=== PATIENT | male | born 1985 | race Hispanic/Latino ===

== ENCOUNTER → 2019-03-06 | Outpatient (CLI) | payer OTHER | END | disposition home or self-care (01) | LOC: OIH 15:45 | PROVIDERS: ATTEND Internal Medicine | DX: M23.92 Unspecified internal derangement of left knee (principal) | CPT/HCPCS: 73560 ==

== ENCOUNTER 2019-05-03 16:15 | Inpatient (IN) | payer BC, OTHER ==
[~2019-05-03] VITALS: Ht 165.1 cm; Wt 66.6 kg
[2019-05-03 16:55] LABS: BASOPHILS % (AUTO) 0.7 % (0.0-5.0); EOSINOPHILS % (AUTO) 0.8 % (0.0-8.0); HEMATOCRIT 48.7 % (42-54); LYMPHOCYTES % (AUTO) 26.4 % (21.0-51.0); MEAN CORPUSCULAR HEMOGLOBIN 30.9 pg (27.0-33.0); MEAN CORPUSCULAR HGB CONC 34.7 g/dL (32.0-36.0); MONOCYTES % (AUTO) 8.8 % (3.0-13.0); NEUTROPHILS % (AUTO) 63.3 % (40.0-77.0); PLATELET COUNT (AUTO) 237 K/uL (130-400); RED BLOOD CELL COUNT(AUTO) 5.47 MIL/uL (4.50-6.20); RED CELL DISTRIBUTION WIDTH 13.3 % (11.0-15.5); WHITE BLOOD COUNT (AUTO) 7.1 K/uL (4.8-10.8)
[2019-05-03 17:04] LABS: APPEARANCE,URINE Clear (CLEAR); BILIRUBIN,URINE Negative (NEGATIVE); COLOR,URINE Yellow (YELLOW); GLUCOSE, URINE (UA) Negative (NEGATIVE); KETONES,URINE Negative (NEGATIVE); LEUKOCYTE ESTERASE ,URINE Negative (NEGATIVE); NITRATE,URINE Negative (NEGATIVE); OCCULT BLOOD,URINE Negative (NEGATIVE); PH,URINE 6.5 (5.0-8.0); PROTEIN,URINE Negative (NEGATIVE); UROBILINOGEN,URINE 0.2 mg/dL (0.2-1.0)
[2019-05-03 17:11] LABS: CREATININE 1.2 mg/dL (0.5-1.5); POTASSIUM 3.9 mmol/L (3.5-5.1)
[2019-05-03 17:45] LABS: ALBUMIN 4.4 g/dL (3.5-5.0); BILIRUBIN,DIRECT 0.1 mg/dL (0.0-0.3); BILIRUBIN,TOTAL 0.5 mg/dL (0.2-1.0); TOTAL PROTEIN, SERUM 7.4 g/dL (6.0-8.3)
[2019-05-03] MEDS ORDERED: IOHEXOL-350 75 ML VIAL IV ONE (20:21)
[2019-05-03] MEDS ORDERED: DEXTROSE 5 %-0.45 % NACL 1,000 ML IV ONE (23:07)
[2019-05-03 23:27] VITALS: BP 132/65
[2019-05-03] MEDS ORDERED: ONDANSETRON HCL 4 MG/2 ML VIAL IVP PRN (23:30)
[2019-05-03] MEDS ORDERED: MORPHINE SULFATE 4 MG/1ML SYG IVP PRN (23:30)
[2019-05-03] MEDS ORDERED: PANT40TA PO (23:32)
[2019-05-04] VITALS (16 sets, daily range): BP systolic 102–126; BP diastolic 49–68
[2019-05-04 05:03] LABS: HEMATOCRIT 42.9 % (42-54); MEAN CORPUSCULAR HEMOGLOBIN 30.1 pg (27.0-33.0); MEAN CORPUSCULAR HGB CONC 34.2 g/dL (32.0-36.0); NUCLEATED RED BLOOD CELLS 0.1 % (0.0-0.19); PLATELET COUNT (AUTO) 229 K/uL (130-400); RED BLOOD CELL COUNT(AUTO) 4.87 MIL/uL (4.50-6.20); RED CELL DISTRIBUTION WIDTH 13.3 % (11.0-15.5); WHITE BLOOD COUNT (AUTO) 6.8 K/uL (4.8-10.8)
[2019-05-04 05:53] LABS: CREATININE 1.2 mg/dL (0.5-1.5)
--- NOTE | 2019-05-04 06:28 | NUR ---
MD SHIRA HOLLAND VISITED WITH PATIENT. POC DISCUSSED. NEW ORDERS RECEIVED AND CARRIED OUT. PATIENT AND SPOUSE AT BEDSIDE AWARE. NO QUESTIONS OR CONCERNS VOICED AT THIS TIME. CALL LIGHT WITHIN REACH. WILL CONTINUE TO BE OBSERVED. Addendum: 05/04/19 at 0630 by JOVITA FABIAN RN RN Amended: Links added.
[2019-05-04] MEDS: DEXTROSE 5 %-0.45 % NACL 1,000 ML IV SCH ×2 (06:46→07:30)
[2019-05-04 06:57] LABS: CHOLESTEROL 182 mg/dL (<200); HDL CHOLESTEROL 37 mg/dL (29-71); LDL DIRECT 130 mg/dL (0-99); TRIGLYCERIDES 62 mg/dL (30-200)
--- NOTE | 2019-05-04 07:30 | NUR ---
DR. ROCKY HIDALGO IN TO SEE PATIENT. HE HAS TRANSFERRED CARE OF PATIENT TO PRIMARY MD (DR. MEDINA).
[2019-05-04] MEDS: PANTOPRAZOLE 40 MG/VIAL IVP SCH (08:17)
[2019-05-04] MEDS ORDERED: PAROXETINE HCL 20 MG TABLET PO SCH ×2 (12:59→21:00)
--- NOTE | 2019-05-04 13:23 | NUR ---
Nutrition intervention: Nutrition consult for weight loss with poor po intake. Pt states he has had 10lb weight loss in the past month. Pt also reports he used to exercise frequently and has stopped due to injuring his leg. Overall, pt appears well nourished, weight loss may be due to muscle loss from lack of exercise. Pt is newly diagnosed with pancreatitis. Pancreatitis diet reviewed with patient. Pt instructed to monitor and reduce fat intake. Pt verbalize understanding. Recommendations: When medically feasible advance diet therapy to low fat diet. Monitor PO intake and tolerance. Consult RD as nutrition concern arise. Addendum: 05/04/19 at [address] RD Amended: Links added.
--- NOTE | 2019-05-04 13:50 | NUR ---
A AUXILIARY DR. JOHNSON HERE TO SEE PATIENT. ORDERS RECEIVED AND CARRIED OUT. PENDING EGD.
--- NOTE | 2019-05-04 14:07 | NUR ---
TO GI LAB PATIENT TRANSFERRED TO GI LAB VIA HOSPITAL BED FOR EGD IN STABLE CONDITION.
[2019-05-04] MEDS ORDERED: PROPOFOL 10 MG/ML 20ML VIAL IV ONE (14:16)
[2019-05-04] MEDS ORDERED: SUCCINYLCHOLINE CHLORIDE 20 MG/ML 10 ML VIAL ONE (14:17)
[2019-05-04] MEDS ORDERED: GLYCOPYRROLATE 0.2 MG/ML 5 ML VIAL ONE ×2 (14:17→14:40)
--- NOTE | 2019-05-04 15:05 | NUR ---
DCP CM met with pt discussed dc plans. Pt is independent prior to admission, lives at home with spouse. Denies any equipments/services. Feels safe to go back home, still drives, spouse able to assist with transportation and needs as necessary. DC plan to home once stable. CM to cont to follow up. Addendum: 05/04/19 at 1506 by ANNE MARIE DURBIN LVN CM Amended: Links added.
--- NOTE | 2019-05-04 15:13 | NUR ---
BACK FROM GI LAB PATIENT RETURNED FROM GI LAB IN STABLE CONDITION. FAMILY IS PRESENT IN ROOM. PENDING HIDA SCAN WITH Jerzy
--- NOTE | 2019-05-04 21:00 | NUR ---
ROUNDS PATIENT AWAKE AND ALERT. VOICES ALL NEEDS. NO COMPLAINTS OF PAIN VOICED AT THIS TIME. VITALS STABLE. AFEBRILE. HIGH FIBER DIET IN PLACE. TOLERATING PO DIET WELL. NO COMPLAINTS OF DYSPEPSIA OR NAUSEA OR VOMITING NOTED. UP AD NOAM. SPOUSE AT BEDSIDE. CALL LIGHT WITHIN REACH. WILL CONTINUE TO BE OBSERVED. Addendum: 05/05/19 at 0322 by JOVITA FABIAN RN RN Amended: Links added.
[2019-05-05] VITALS: BP 109/55
[2019-05-05 03:52] VITALS: BP 114/67
[2019-05-05 04:26] LABS: HEMATOCRIT 43.7 % (42-54); MEAN CORPUSCULAR HEMOGLOBIN 31.1 pg (27.0-33.0); MEAN CORPUSCULAR VOLUME 88.7 fL (79-99); PLATELET COUNT (AUTO) 229 K/uL (130-400); RED BLOOD CELL COUNT(AUTO) 4.93 MIL/uL (4.50-6.20); RED CELL DISTRIBUTION WIDTH 13.3 % (11.0-15.5); WHITE BLOOD COUNT (AUTO) 10.4 K/uL (4.8-10.8)
[2019-05-05 04:40] LABS: ALBUMIN 3.7 g/dL (3.5-5.0); BILIRUBIN,TOTAL 1.1 mg/dL (0.2-1.0); CREATININE 1.2 mg/dL (0.5-1.5); POTASSIUM 3.5 mmol/L (3.5-5.1); TOTAL PROTEIN, SERUM 6.7 g/dL (6.0-8.3)
--- NOTE | 2019-05-05 06:31 | NUR ---
MD SHIRA HOLLAND VISITED WITH PATIENT. POC DISCUSSED. NO NEW ORDERS AT THIS TIME. PENDING 2D ECHO BEFORE DISCHARGE. FOLLOW UP WITH ON ELEVATED LIPASE. PATIENT AWARE. WILL CONTINUE TO BE OBSERVED. CALL LIGHT WITHIN REACH. Addendum: 05/05/19 at 0632 by JOVITA FABIAN RN RN Amended: Links added.
--- NOTE | 2019-05-05 07:57 | NUR ---
message left in 2d echo dep. about getting the echo done this am. pending call back
[2019-05-05 08:02] VITALS: BP 111/70
[2019-05-05] MEDS: PANTOPRAZOLE 40 MG/VIAL IVP SCH (09:30)
[2019-05-05 11:33] VITALS: BP 113/72
[2019-05-05] MEDS: LACTATED RINGERS 1000ML 1,000 ML IV SCH ×2 (12:52→20:00)
[2019-05-05 16:00] VITALS: BP 119/75
[2019-05-05 19:21] VITALS: BP 119/63
[2019-05-05] MEDS: DEXTROSE 5 %-0.45 % NACL 1,000 ML IV SCH (19:43)
[2019-05-05] MEDS ORDERED: PAROXETINE HCL 20 MG TABLET PO SCH (21:00)
[2019-05-06] VITALS: BP 105/55
[2019-05-06 04:00] VITALS: BP 119/59
[2019-05-06] MEDS: DEXTROSE 5 %-0.45 % NACL 1,000 ML IV SCH (04:29)
[2019-05-06 06:14] LABS: ALBUMIN 3.6 g/dL (3.5-5.0); BILIRUBIN,TOTAL 0.8 mg/dL (0.2-1.0); CREATININE 1.2 mg/dL (0.5-1.5); POTASSIUM 3.6 mmol/L (3.5-5.1); TOTAL PROTEIN, SERUM 6.5 g/dL (6.0-8.3)
[2019-05-06 07:52] VITALS: BP 112/65
[2019-05-06] MEDS: PANTOPRAZOLE 40 MG/VIAL IVP SCH (08:40)
--- NOTE | 2019-05-06 10:47 | NUR ---
pt stated understanding of all d/c instructions in regards to pancreatitis, low fat diet, new perscriptions and follow up that need to be called for appointment; at bedside also stated understanding; iv access removed. to drive home.
== END 2019-05-06 11:25 | disposition home or self-care (01) | DRG 391 ==
LOC: EDH 16:15 → EDHIP 22:25 → 4AH 23:07
PROVIDERS: ADMIT Internal Medicine; ATTEND Internal Medicine
PROC: 0DB98ZX Excision of Duodenum, Via Natural or Artificial Opening Endoscopic, Diagnostic (ICD-10-PCS; principal; 2019-05-04)
PROC: 0DB68ZX Excision of Stomach, Via Natural or Artificial Opening Endoscopic, Diagnostic (ICD-10-PCS; 2019-05-04)
PROC: 0DB58ZX Excision of Esophagus, Via Natural or Artificial Opening Endoscopic, Diagnostic (ICD-10-PCS; 2019-05-04)
DX: K29.70 Gastritis, unspecified, without bleeding (principal); K85.90 Acute pancreatitis without necrosis or infection, unspecified; K86.1 Other chronic pancreatitis; F32.9 Major depressive disorder, single episode, unspecified; K21.0 Gastro-esophageal reflux disease with esophagitis; K59.00 Constipation, unspecified; K76.0 Fatty (change of) liver, not elsewhere classified; Z79.899 Other long term (current) drug therapy; R13.10 Dysphagia, unspecified; F43.10 Post-traumatic stress disorder, unspecified; F41.1 Generalized anxiety disorder
CPT/HCPCS: 36415; 43239; 71046; 74177; 76705; 78227; 80048; 80053; 80061; 80076; 81003; 82150; 82550; 83690; 84484; 85025; 85027; 85378; 87804; 88305; 93005; 93306; A9537; C9113; G0378; J0330; J2704; J3490; J7042; J7120; Q9967

== ENCOUNTER 2019-07-19 07:49 | Day surgery (SDC) | payer BC ==
[~2019-07-19] VITALS: Ht 165.1 cm; Wt 68.0 kg
[~2019-07-19 07:49] MED LIST: SODIUM CHLORIDE 0.9% 1000ML 1,000 ML IV ONE
[2019-07-19 08:30] VITALS: BP 109/62
[2019-07-19] MEDS ORDERED: PROPOFOL 10 MG/ML 20ML VIAL IV ONE ×2 (08:44)
[2019-07-19 09:02] VITALS: BP 110/59
[2019-07-19 09:07] VITALS: BP 103/57
[2019-07-19 09:12] VITALS: BP 116/61
== END 2019-07-19 09:30 | disposition home or self-care (01) ==
LOC: DAH 07:49 → ENDO 07:49
PROVIDERS: ATTEND Internal Medicine
DX: K85.90 Acute pancreatitis without necrosis or infection, unspecified (principal); K86.89 Other specified diseases of pancreas; K21.0 Gastro-esophageal reflux disease with esophagitis; R14.2 Eructation; K76.9 Liver disease, unspecified; F41.9 Anxiety disorder, unspecified; F32.9 Major depressive disorder, single episode, unspecified; Z79.899 Other long term (current) drug therapy
CPT/HCPCS: 43237; A4215; A4221; A4222; A4223; A4606; A4620; A4663; J2704 ×2; J7030

== ENCOUNTER → 2020-02-02 | Outpatient (CLI) | payer BC ==
[~2020-02-02] MED LIST changes: +IOHEXOL 350 MG/ML 100ML INFUS..BTL IV ONE; -SODIUM CHLORIDE 0.9% 1000ML 1,000 ML IV ONE
== END | disposition home or self-care (01) ==
LOC: OIH 08:51
PROVIDERS: ATTEND Internal Medicine Gastroenterology
DX: R10.13 Epigastric pain (principal); K85.90 Acute pancreatitis without necrosis or infection, unspecified
CPT/HCPCS: 74170; Q9967

== ENCOUNTER 2020-05-05 11:11 | Emergency (ER) | payer BC ==
[2020-05-05 11:31] LABS: BASOPHILS % (AUTO) 0.6 % (0.0-5.0); EOSINOPHILS % (AUTO) 1.6 % (0.0-8.0); HEMATOCRIT 49.3 % (42-54); LYMPHOCYTES % (AUTO) 34.9 % (21.0-51.0); MEAN CORPUSCULAR HEMOGLOBIN 29.3 pg (27.0-33.0); MEAN CORPUSCULAR HGB CONC 33.9 g/dL (32.0-36.0); MEAN CORPUSCULAR VOLUME 86.6 fL (79-99); MONOCYTES % (AUTO) 8.8 % (3.0-13.0); NEUTROPHILS % (AUTO) 53.7 % (40.0-77.0); PLATELET COUNT (AUTO) 206 K/uL (130-400); RED BLOOD CELL COUNT(AUTO) 5.69 MIL/uL (4.50-6.20); RED CELL DISTRIBUTION WIDTH 11.9 % (11.0-15.5); WHITE BLOOD COUNT (AUTO) 4.9 K/uL (4.8-10.8)
[2020-05-05 11:46] LABS: APPEARANCE,URINE Clear (CLEAR); BILIRUBIN,URINE Negative (NEGATIVE); COLOR,URINE Yellow (YELLOW); GLUCOSE, URINE (UA) Negative (NEGATIVE); KETONES,URINE Negative (NEGATIVE); LEUKOCYTE ESTERASE ,URINE Negative (NEGATIVE); NITRATE,URINE Negative (NEGATIVE); OCCULT BLOOD,URINE Negative (NEGATIVE); PH,URINE 7.5 (5.0-8.0); PROTEIN,URINE Negative (NEGATIVE); UROBILINOGEN,URINE 0.2 mg/dL (0.2-1.0)
[2020-05-05 12:19] LABS: CREATININE 1.2 mg/dL (0.5-1.5); POTASSIUM 4.3 mmol/L (3.5-5.1)
[2020-05-05 12:23] LABS: ALBUMIN 4.6 g/dL (3.5-5.0); BILIRUBIN,TOTAL 0.6 mg/dL (0.2-1.0); TOTAL PROTEIN, SERUM 7.9 g/dL (6.0-8.3)
[2020-05-05] MEDS ORDERED: KETOROLAC TROMETHAMINE 30MG/ML ONE (12:43)
[2020-05-05] MEDS ORDERED: SODIUM CHLORIDE 0.9% 1000ML 1,000 ML IV ONE (12:43)
== END 2020-05-05 15:32 | disposition home or self-care (01) ==
LOC: EDH 11:11
DX: T14.8XXA Other injury of unspecified body region, initial encounter (principal); R10.12 Left upper quadrant pain; K21.9 Gastro-esophageal reflux disease without esophagitis; Z88.1 Allergy status to other antibiotic agents; X58.XXXA Exposure to other specified factors, initial encounter; Y93.89 Activity, other specified; Y92.89 Other specified places as the place of occurrence of the external cause; Y99.8 Other external cause status
CPT/HCPCS: 36415; 74176; 80053; 81003; 82150; 83690; 85025; 96361; 96374; 99284; J1885; J7030

== ENCOUNTER 2020-09-08 22:37 | Emergency (ER) | payer BC ==
[2020-09-08] MEDS ORDERED: KETOROLAC 30MG VIAL (30MG/ML) ONE (23:08)
[2020-09-08 23:10] LABS: BASOPHILS % (AUTO) 0.6 % (0.0-5.0); HEMATOCRIT 44.4 % (42-54); MEAN CORPUSCULAR HEMOGLOBIN 30.1 pg (27.0-33.0); MEAN CORPUSCULAR VOLUME 88.4 fL (79-99); MONOCYTES % (AUTO) 12.5 % (3.0-13.0); NEUTROPHILS % (AUTO) 50.5 % (40.0-77.0); PLATELET COUNT (AUTO) 251 K/uL (130-400); RED BLOOD CELL COUNT(AUTO) 5.02 MIL/uL (4.50-6.20); RED CELL DISTRIBUTION WIDTH 12.4 % (11.0-15.5); WHITE BLOOD COUNT (AUTO) 7.3 K/uL (4.8-10.8)
[2020-09-08 23:31] LABS: CREATININE 1.5 mg/dL (0.5-1.5); POTASSIUM 3.8 mmol/L (3.5-5.1)
[2020-09-08 23:36] LABS: ALBUMIN 4.1 g/dL (3.5-5.0); BILIRUBIN,TOTAL 0.4 mg/dL (0.2-1.0); TOTAL PROTEIN, SERUM 7.3 g/dL (6.0-8.3)
[2020-09-09 00:44] LABS: APPEARANCE,URINE Clear (CLEAR); BILIRUBIN,URINE Negative (NEGATIVE); COLOR,URINE Yellow (YELLOW); GLUCOSE, URINE (UA) Negative (NEGATIVE); KETONES,URINE Negative (NEGATIVE); LEUKOCYTE ESTERASE ,URINE Negative (NEGATIVE); NITRATE,URINE Negative (NEGATIVE); OCCULT BLOOD,URINE Negative (NEGATIVE); PH,URINE 6.5 (5.0-8.0); PROTEIN,URINE Negative (NEGATIVE); UROBILINOGEN,URINE 0.2 mg/dL (0.2-1.0)
[2020-09-09] MEDS ORDERED: CYCLOBENZAPRINE HCL 10 MG TABLET ONE (02:26)
== END 2020-09-09 02:37 | disposition home or self-care (01) ==
LOC: EDH 22:37
DX: R10.32 Left lower quadrant pain (principal); N50.82 Scrotal pain; K21.9 Gastro-esophageal reflux disease without esophagitis; Z88.1 Allergy status to other antibiotic agents; Z79.899 Other long term (current) drug therapy
CPT/HCPCS: 36415; 76770; 76870; 80053; 81003; 83605; 83690; 85025; 96361; 96374; 99284; J1885

== ENCOUNTER → 2021-01-06 | Outpatient (CLI) | payer BC | END | disposition home or self-care (01) | LOC: RAH 12:45 | PROVIDERS: ATTEND Internal Medicine | DX: R10.32 Left lower quadrant pain (principal) | CPT/HCPCS: 74150 ==